=== PATIENT | female | born 1990 | race Caucasian/White ===

== ENCOUNTER → 2019-06-07 11:35 | Outpatient (CLI) | payer MEDICAID, SELFPAY ==
--- NOTE | 2019-06-07 11:53 | RAD_ITS ---
EXAM DESCRIPTION: Leg length study CLINICAL HISTORY: 29 years Female, LIMB LENGTH DIFFERENCE COMPARISON: None FINDINGS: A leg length study was performed in an AP standing projection of the lower extremities bilaterally with the following measurements: Right femur: 45.4 cm. Left femur: 44.6 cm. Right tibia: 34.7 cm. Left tibia: 33.8 cm. Total right leg length: 80.1 cm. Left leg length: 78.4 cm. Discrepancy: 1.5 cm. RAD/Bone Length IMPRESSION: The right leg is 1.5 cm longer than the left leg. Electronically Signed: Rusty Louisa, at 15:35 EST Tel , Service support ,
== END ==
PROVIDERS: PCP Family Medicine; Referring Provider Podiatrist; Visit Provider Podiatrist
DX: M21.70 Unequal limb length (acquired), unspecified site (principal)
CPT/HCPCS: 77073